=== PATIENT | male | born 1990 | race African-American/Black ===

== ENCOUNTER 2018-02-23 12:32 | Emergency (ER) | payer BC, OTHER ==
[~2018-02-23] VITALS: Ht 170.2 cm; Wt 66.0 kg
[2018-02-23 18:26] VITALS: BP 120/87
== END 2018-02-23 18:30 | disposition home or self-care (01) ==
LOC: ER 12:32
DX: M54.2 Cervicalgia (principal); R03.0 Elevated blood-pressure reading, without diagnosis of hypertension
CPT/HCPCS: 71045; 99283